=== PATIENT | female | born 1955 | race Caucasian/White ===

== ENCOUNTER 2016-07-27 17:18 | Emergency (ER) | payer OTHER ==
[2016-07-27 17:26] VITALS: BP 145/72; PULSE 67; TEMP 97.5; BMI 23.8
[2016-07-27 18:18] LABS: BASOPHIL 0.7 % (0-2.0); EOSINOPHIL 1.9 % (0-4.5); MCH 30.4 pg (25.7-33.7); MCHC 33.2 g/dl (32.0-36.0); MEAN CELL VOLUME 91.3 fl (80-96); MEAN PLT VOLUME 8.2 fl (7.5-11.1); NEUTROPHILS 80.6 % (42.8-82.8); PLATELET COUNT 303 K/MM3 (134-434); RDW 13.4 % (11.6-15.6); WHITE BLOOD COUNT 10.9 K/mm3 (4.0-10.0)
--- NOTE | 2016-07-27 18:20 | PDOC ---
History of Present Illness - General Chief Complaint: Pain Stated Complaint: PCP SENT/ABDOMINAL PAIN Time Seen by Provider: 07/27/16 17:38 History Source: Patient Exam Limitations: No Limitations - History of Present Illness Travel History: No Initial Comments: 07/27/16 18:14 60-year-old female sent over here from [place] Dr. Posadas for evaluation of abdominal pain and abdominal distention. Patient was receiving a colonoscopy today by Dr. Posadas when he was unable to advance his scope secondary to "bowel twisting", and "gas." Patient was going for colonoscopy since she has been having episodes of constipation with no bowel movement sometimes up to 8 days. Patient also has had increase abdominal distention despite passing gas. Patient denies nausea, vomiting, fever, dysuria , rectal bleeding, or hemorrhoids. Patient does state was diagnosed with bladder cancer last year and under the care of Dr. Dr. Polanco but is currently on no medical regimen and only being observed this time since she completed the initial treatment last year. Timing/Duration: reports: constant, getting worse Quality: reports: moderate, fullness, sharpness Abdominal Pain Onset Location: reports: generalized abdomen Pain Radiation: reports: RLQ, LLQ Activities at Onset: reports: none Aggravating Factors: improves with: None Alleviating Factors: improves with: None Past History - Past Medical History Allergies/Adverse Reactions: Allergies Allergy/AdvReac Type Severity Reaction Status Date / Time metformin Allergy Hives Verified 07/27/16 17:20 Penicillins Allergy Verified 07/27/16 17:20 Home Medications: Ambulatory Orders Albuterol Sulfate Inhaler - [Ventolin HFA Inhaler -] 1 - 2 inh PO Q4H PRN #0 inh 01/12/14 Montelukast Na [Singulair -] 10 mg PO HS PRN #0 tablet 01/12/14 Prednisone [Deltasone -] 40 mg PO DAILY #0 tablet 01/12/14 Asthma: Yes Cancer: Yes (bladder) Suicide Attempt (Hx): No - Reproductive History Is Patient Now?: No Therapeutic (s) & number: No - Immunization History Immunization Up to Date: Yes - Psycho/Social/Smoking Cessation Hx Anxiety: No Suicidal Ideation: No Smoking Status: No Smoking History: Former smoker Have you smoked in the past 12 months: No Number of Cigarettes Smoked Daily: 0 If you are a former smoker, when did you quit?: stopped 1990 Information on smoking cessation initiated: No Hx Alcohol Use: No Drug/Substance Use Hx: No Substance Use Type: None Hx Substance Use Treatment: No Patient Lives Alone: No Lives with/in: spouse/SO Review of Systems - Review of Systems Able to Perform ROS?: Yes Constitutional: No: Symptoms Reported HEENTM: No: Symptoms Reported Respiratory: No: Symptoms reported Cardiac (ROS): No: Symptoms Reported ABD/GI: Yes: Abdominal Distended, Constipated, Abdominal cramping : No: Symptoms Reported Musculoskeletal: No: Symptoms Reported Integumentary: No: Symptoms Reported Neurological: No: Symptoms reported Endocrine: No: Symptoms Reported Hematologic/Lymphatic: No: Symptoms Reported *Physical Exam - Vital Signs Last Vital Signs Temp Pulse Resp BP Pulse Ox 97.5 F L 67 24 145/72 100 07/27/16 17:21 07/27/16 17:21 07/27/16 17:21 07/27/16 17:21 07/27/16 17:21 - Physical Exam General Appearance: Yes: Nourished, Appropriately Dressed. No: Apparent Distress HEENT: negative: Pale Conjunctivae Neck: positive: Supple Respiratory/Chest: positive: Lungs Clear, Normal Breath Sounds. negative: Respiratory Distress, Accessory Muscle Use Cardiovascular: positive: Regular Rhythm, Regular Rate. negative: Murmur Gastrointestinal/Abdominal: positive: Tender (lower quadrants ), Increased Bowel Sounds, Distended. negative: Guarding, Rebound, Hernia, Mass Musculoskeletal: negative: CVA Tenderness Extremity: positive: Normal Capillary Refill. negative: Pedal Edema Integumentary: positive: Normal Color, Warm, Moist Neurologic: positive: Normal Mood/Affect, Motor Strength 5/5 (ambulatory) ED Treatment Course - LABORATORY CBC & Chemistry Diagram: 07/27/16 18:00 07/27/16 18:00 - RADIOLOGY Radiology Studies Ordered: Category Date Time Status ABDOMEN & PELVIS CT W/O CONTR [CT] Stat CT Scan 07/27/16 18:06 Ordered ABDOMEN FLAT & UPRIGHT [RAD] Stat Radiology 07/27/16 18:05 Ordered Medical Decision Making - Medical Decision Making 07/27/16 18:18 Patient sent here for evaluation of abdominal distention, and gas. Patient states was unable to receive the colonoscopy today by Dr. Posadas and was sent here for further evaluation. Patient states was due for colonoscopy today since she has been having bouts of constipation and abdominal distention. Patient concerning for perforation versus partial bowel obstruction. Patient ordered initially for flat and upright x-ray including labs and then will have a CT with by mouth contrast. 07/27/16 18:51 X-ray shows no perforation. Patient pending CT. Case discussed with Dr. Steward who states will consult on patient in the morning. 07/27/16 19:20 Dr. Posadas here for consultation and states patient may be discharged home and follow up in the office. Patient also to take Gas-X upon discharge. Will repeat vitals. *DC/Admit/Observation/Transfer Diagnosis at time of Disposition: Gas - Discharge Dispostion Disposition: HOME Condition at time of disposition: Good - Referrals Referrals: Junaid Cabrera MD [Primary Care Provider] - Jimy Posadas MD [Staff Physician] - - Patient Instructions Printed Discharge Instructions: How to Avoid Gas, Avoiding Gas-producing Foods Additional Instructions: Please increase your ambulation. May take Gas-X to alleviate your symptoms. Follow up with Dr. Posadas next week.
[2016-07-27 18:40] LABS: URINE APPEARANCE CLEAR; URINE BILIRUBIN NEGATIVE (NEGATIVE); URINE COLOR YELLOW; URINE GLUCOSE (UA) NEGATIVE (NEGATIVE); URINE KETONE NEGATIVE (NEGATIVE); URINE LEUK ESTERASE NEGATIVE (NEGATIVE); URINE NITRITE NEGATIVE (NEGATIVE); URINE PROTEIN NEGATIVE (NEGATIVE); URINE UROBILINOGEN NEGATIVE E.U./dl (0.2-1.0)
[2016-07-27 18:44] LABS: URINE BLOOD 1+ (NEGATIVE)
[2016-07-27 19:00] LABS: INR 1.12 (0.82-1.09); PROTHROMBIN TIME (PATIENT) 12.4 SEC (9.98-11.88)
[2016-07-27 19:25] LABS: ALBUMIN 4.1 g/dl (3.4-5.0); ALK PHOS 91 U/L (45-117); ANION GAP 10 (8-16); BILIRUBIN,TOTAL 0.6 mg/dL (0.2-1.0); CALCIUM 9.2 mg/dL (8.5-10.1); CO2 23 mmol/L (21-32); CREATININE 0.7 mg/dL (0.55-1.02); GLUCOSE,RANDOM 98 mg/dL (74-106); SGPT/ALT 25 U/L (12-78); TOT PROT 7.1 g/dl (6.4-8.2)
[2016-07-27 19:33] LABS: SGOT/AST 22 U/L (15-37)
--- NOTE | 2016-07-28 10:30 | EKG ---
Test Reason : Blood Pressure : / mmHG Vent. Rate : 056 BPM Atrial Rate : 056 BPM P-R Int : 128 ms QRS Dur : 084 ms QT Int : 430 ms P-R-T Axes : 044 024 044 degrees QTc Int : 414 ms SINUS BRADYCARDIA POSSIBLE LEFT ATRIAL ENLARGEMENT BORDERLINE ECG WHEN COMPARED WITH ECG OF 09-JAN-2014 13:27, VENT. RATE HAS DECREASED BY 30 BPM QT HAS SHORTENED Confirmed by EMBER NGO, JORDON ([id number]) on 07/28/2016 10:30:41 AM Referred By: Confirmed By:JORDON PA MD
== END 2016-07-27 20:10 | disposition home or self-care (01) ==
LOC: JER 17:18 → SUPCPDRO 17:18 → JER 20:10
DX: R14.3 Flatulence (principal); Z85.51 Personal history of malignant neoplasm of bladder; J45.909 Unspecified asthma, uncomplicated; Z87.891 Personal history of nicotine dependence
CPT/HCPCS: 36415; 74020-TC; 80053; 81003; 81015; 85025; 85610; 93005; 93010; 99284-25

== ENCOUNTER 2017-07-18 05:19 | Day surgery (SDC) | payer OTHER ==
[2017-07-12 14:26] VITALS: BMI 24.1
[2017-07-18] MEDS ORDERED: LIDOCAINE HCL/PF 2% SDV 5ML VIAL ONE (13:37)
[2017-07-18] MEDS ORDERED: MIDAZOLAM HCL 2 MG/2 ML SINGLE DOSE VIAL ONE (13:38)
[2017-07-18] MEDS ORDERED: PROPOFOL 20 ML ONE ×2 (13:38)
[2017-07-18] MEDS ORDERED: LEVOFLOXACIN 500 MG PREMIX BAG IVPB ONE (13:55)
[2017-07-18] MEDS ORDERED: ONDANSETRON 4 MG/2 ML VIAL IVPUSH PRN (14:42)
[2017-07-18] MEDS ORDERED: oxyCODONE HCL 5 MG TABLET PO PRN (14:42)
[2017-07-18] MEDS ORDERED: PROMETHAZINE HCL 25 MG/1 ML VIAL IVPUSH PRN (14:42)
[2017-07-18] MEDS ORDERED: LACTATED RINGERS SOLUTION 1,000 ML IV SCH (14:45)
[2017-07-18] MEDS ORDERED: ONDANSETRON 4 MG/2 ML VIAL ONE (16:19)
[2017-07-18 16:43] VITALS: TEMP 97.5
--- NOTE | 2017-07-18 17:09 | OP ---
Operative Note - Note: Operative Date: 07/18/17 Pre-Operative Diagnosis: recurrent bladder tumor Operation: cystoscopy and bladder biopsy Findings: posterior wall 1 cm lesion with papillary characteristics Post-Operative Diagnosis: Same as Pre-op Surgeon: August Polanco Anesthesia: General Specimens Removed: bladder tumor Operative Report Dictated: Yes
[2017-07-18 18:51] VITALS: BP 125/83; PULSE 62
--- NOTE | 2017-07-19 09:06 | OP ---
DATE OF OPERATION: 07/18/2017 PREOPERATIVE DIAGNOSIS: Recurrent bladder tumor in a patient with a history of transitional cell carcinoma. POSTOPERATIVE DIAGNOSIS: Recurrent bladder tumor in a patient with a history of transitional cell carcinoma. PROCEDURE: Cystoscopy and bladder biopsy. ATTENDING: August Hays MD ANESTHESIA: General. DESCRIPTION OF OPERATION: The patient was brought in the operating room and placed in supine position. General anesthesia and preoperative antibiotics were administered. The patient was then in the dorsal lithotomy position and prepped and draped in the usual sterile manner. Cystoscopy was performed, and a 1-cm lesion at the posterior bladder near the dome was noted. Because of the position, resection of the bladder tumor was not advisable. In order to avoid an open procedure involving a partial cystectomy, it was decided to use a biopsy forceps to remove the tumor and send it for analysis. The tumor was removed. No remnants of the tumor were left behind. Excellent hemostasis was obtained with Bugbee cauterization. The patient tolerated the procedure very well. The patient was left with a catheter. The disposition of the patient was to the recovery room. Gomez [id number]
--- NOTE | 2017-07-20 12:48 | PATH ---
Surgical Pathology Report Patient Name: BARON MARK [facility]. Rec. #: [id number] /Age/Gender: 1955 (Age: 61) / F Account: [id number] Location: [facility] SURGICAL Taken: 07/18/2017 Received: 07/19/2017 Reported: 07/20/2017 Physicians: August Polanco Specimen(s) Received RECURRENT BLADDER TUMOR Clinical History Carcinoma In situ of bladder Final Diagnosis BLADDER, RECURRENT TUMOR, BIOPSY: LOW GRADE PAPILLARY UROTHELIAL CARCINOMA, NON-INVASIVE. NO flat carcinoma in situ (CIS) identified. NO MUSCULARIS PROPRIA PRESENT. Comment: Findings discussed with Dr. Polanco. Electronically Signed Faiza Owens M.D. Gross Description Received in formalin, labeled "recurrent bladder tumor" is a lentz, irregular portion of soft tissue measuring 0.2 cm. in greatest dimension. The specimen is submitted in toto in one cassette. 07/19/201707/19/2017
== END 2017-07-18 18:20 | disposition home or self-care (01) ==
LOC: JASU-SURG 05:19
PROVIDERS: ATTEND Urology
PROC: 0TBB8ZX Excision of Bladder, Via Natural or Artificial Opening Endoscopic, Diagnostic (ICD-10-PCS; principal; 2017-07-18 11:30)
DX: C67.9 Malignant neoplasm of bladder, unspecified (principal)
CPT/HCPCS: 88305-TC; 94760

== ENCOUNTER 2018-03-06 07:17 | Day surgery (SDC) | payer OTHER ==
[2018-03-03 11:39] VITALS: BMI 24.1
[2018-03-06] MEDS ORDERED: MIDAZOLAM HCL 2 MG/2 ML SINGLE DOSE VIAL ONE (08:16)
[2018-03-06] MEDS ORDERED: LIDOCAINE HCL/PF 2% SDV 5ML VIAL ONE (08:16)
[2018-03-06] MEDS ORDERED: PROPOFOL 20 ML ONE (08:16)
[2018-03-06] MEDS ORDERED: ONDANSETRON 4 MG/2 ML VIAL IVPUSH PRN (09:11)
[2018-03-06] MEDS ORDERED: oxyCODONE HCL 5 MG TABLET PO PRN (09:11)
[2018-03-06] MEDS ORDERED: LACTATED RINGERS SOLUTION 1,000 ML IV SCH (09:15)
[2018-03-06 09:37] VITALS: TEMP 97.7
[2018-03-06 10:01] VITALS: PULSE 52
[2018-03-06] MEDS ORDERED: oxyCODONE HCL 5 MG TABLET ONE (10:22)
--- NOTE | 2018-03-06 10:24 | OP ---
Operative Note - Note: Operative Date: 03/06/18 Pre-Operative Diagnosis: bladder tumor with history of TCC Operation: Cystoscopy/bladder biopsy/transuretral vaporizaion of bladder tumor Findings: two areas of bladder tumor each measuring one cm. Three areas vaporized with total area of 3-4 cm. Post-Operative Diagnosis: Same as Pre-op Surgeon: August Polanco Anesthesia: General Specimens Removed: bladder tumor Drains & Tubes with Location: [address]
[2018-03-06] MEDS ORDERED: oxyCODONE HCL 5 MG TABLET PO ONE (10:30)
[2018-03-06 11:19] VITALS: BP 112/69
--- NOTE | 2018-03-07 08:20 | OP ---
DATE OF OPERATION: 03/06/2018 PREOPERATIVE DIAGNOSIS: Bladder tumor with history of transitional cell carcinoma. POSTOPERATIVE DIAGNOSIS: Bladder tumor with history of transitional cell carcinoma. PROCEDURE PERFORMED: Cystoscopy, bladder biopsy, transurethral vaporization of bladder tumor. SURGEON: Erik Mendez MD ANESTHESIA: General. DESCRIPTION OF PROCEDURE: With the patient under anesthesia, cystoscopy was performed. The patient had an attempt at a biopsy in the office setting. This was performed at the dome of the bladder. There were 2 other areas with a small focus of neoplastic growth. Each of these areas measured a size of greater than 1 cm. A total of 3 to 4 cm was involved with the neoplasm of the bladder. The 2 residual neoplastic growths were biopsied and sent for analysis. Vaporization of the affected areas was performed utilizing the PlasmaKinetic system or bipolar system. The elements were utilized and vaporization to the level of the deep muscle of the bladder was performed in all 3 areas. No complications were noted. The patient tolerated the procedure very well. The patient was left with a Mehta catheter to straight drainage. ERIK MENDEZ M.D. [id number]
--- NOTE | 2018-03-07 18:13 | PATH ---
Surgical Pathology Report Patient Name: BARON MARK [facility]. Rec. #: [id number] /Age/Gender: 1955 (Age: 62) / F Account: [id number] Location: [facility] SURGICAL Taken: 03/06/2018 Received: 03/06/2018 Reported: 03/07/2018 Physicians: August Polanco Specimen(s) Received URINARY/BLADDER BIOPSY Clinical History Carcinoma in situ of bladder Final Diagnosis URINARY BLADDER, BIOPSY: LOW GRADE PAPILLARY UROTHELIAL CARCINOMA, NONINVASIVE. NO MUSCULARIS PROPRIA PRESENT. NO FLAT CARCINOMA IN SITU IDENTIFIED. Electronically Signed Olvin Ponce M.D. Gross Description Received in formalin labeled "urinary bladder biopsy," are 2 lentz soft tissue fragments averaging 0.2 cm in greatest dimension. The specimens are submitted in toto in one cassette. 03/06/201803/06/2018
== END 2018-03-06 11:28 | disposition home or self-care (01) ==
LOC: JASU-SURG 07:17
PROVIDERS: ATTEND Urology
PROC: 0TBB8ZX Excision of Bladder, Via Natural or Artificial Opening Endoscopic, Diagnostic (ICD-10-PCS; 2018-03-06)
PROC: 0T5B8ZZ Destruction of Bladder, Via Natural or Artificial Opening Endoscopic (ICD-10-PCS; principal; 2018-03-06 09:00)
DX: C67.9 Malignant neoplasm of bladder, unspecified (principal)
CPT/HCPCS: 88305-TC; 94760

== ENCOUNTER 2020-02-04 12:24 | Day surgery (SDC) | payer OTHER ==
[2020-02-01 12:47] VITALS: BMI 24.1
[2020-02-04] MEDS ORDERED: MIDAZOLAM HCL 2 MG/2 ML SINGLE DOSE VIAL ONE (14:50)
[2020-02-04] MEDS ORDERED: PROPOFOL 20 ML ONE (15:10)
--- NOTE | 2020-02-04 15:45 | OP ---
Operative Note - Note: Operative Date: 02/04/20 Pre-Operative Diagnosis: Left renal stone Operation: Left ESWL Findings: 5 mm lower pole left renal stone Post-Operative Diagnosis: Same as Pre-op Surgeon: August Polanco Anesthesia: Regional Estimated Blood Loss (mls): 0 Operative Report Dictated: Yes
[2020-02-04 17:44] VITALS: BP 118/70; PULSE 70; TEMP 97.8
--- NOTE | 2020-02-18 20:50 | OP ---
DATE OF OPERATION: 02/04/2020 PREOPERATIVE DIAGNOSIS: Left renal stone. POSTOPERATIVE DIAGNOSIS: Left renal stone. PROCEDURE: Left extracorporeal shock wave lithotripsy. ATTENDING: Erik Mendez MD ANESTHESIA: Fractional. DESCRIPTION OF OPERATION: Patient was brought in the operating room and placed in supine position on the operating room table. Ultrasonography and fluoroscopy were performed. A 5-mm left lower pole stone was identified. Shock wave lithotripsy was then started after anesthesia and preoperative antibiotics had been administered. The patient tolerated the procedure very well. There were no complications noted. The disposition of the patient was to the recovery room. ERIK MENDEZ M.D. [id number]
== END 2020-02-04 17:00 | disposition home or self-care (01) ==
LOC: JASU-SURG 12:24
PROVIDERS: ATTEND Urology
PROC: 0TF4XZZ Fragmentation in Left Kidney Pelvis, External Approach (ICD-10-PCS; principal; 2020-02-04 14:30)
DX: N20.0 Calculus of kidney (principal)

== ENCOUNTER 2020-03-31 04:45 | Day surgery (SDC) | payer OTHER ==
[2020-03-28 14:02] VITALS: BMI 24.0
--- OUTSIDE RECORDS SUMMARY | 2020-03-31 04:49 | XMS ---
:1955 Author Organization [facility] Support Name Relationship Address Phone ANDERSON INTERMEDIATE Unavailable [address] [place] [address] ALBERTINAPATRICIAHARRIET WAQAS (BR IN LAW) BROTHER [address] [address] MATHEW [address] [place] [address] Re-disclosure Warning The records that you are about to access may contain information from federally- assisted alcohol or drug abuse programs. If such information is present, then the following federally mandated warning applies: This information has been disclosed to you from records protected by federal confidentiality rules (42 CFR part 2). The federal rules prohibit you from making any further disclosure of this information unless further disclosure is expressly permitted by the written consent of the person to whom it pertains or as otherwise permitted by 42 CFR part 2. A general authorization for the release of medical or other information is NOT sufficient for this purpose. The Federal rules restrict any use of the information to criminally investigate or prosecute any alcohol or drug abuse patient.The records that you are about to access may contain highly sensitive health information, the redisclosure of which is protected by Article 27-F of the [facility] Public Health law. If you continue you may haveaccess to information: Regarding HIV / AIDS; Provided by facilities licensed or operated by the [facility] Office of Mental Health; or Provided by the [facility] Office for People With Developmental Disabilities. If such information is present, then the following [facility] mandated warning applies: This information has been disclosed to you from confidential records which are protected by state law. State law prohibits you from making any further disclosure of this information without the specific written consent of the person to whom it pertains, or as otherwise permitted by law. Any unauthorized further disclosure in violation of state law may result in a fine or care home sentence or both. A general authorization for the release of medical or other information is NOT sufficient authorization for further disclosure. Insurance Providers Payer name Policy type Policy ID Covered Covered libertarian's Policy P robyn / Coverage libertarian ID relationship to [place] [employer] type [place] LOCAL [id number] - [id number] [facility] Results ID Date Data Source [id number] 03/26/2020 11:51:00 AM EDT [facility] Name Value Range Interpretation Description Data Sup porting Code Source(s) Document(s ) SARS [facility] coronavirus 2 RNA This lab was ordered by [facility] and reported by [facility]. ID Date Data Source [id number] 03/20/2020 07:42:00 AM EDT [facility] Name Value Range Interpretation Code Description Data Edyta rce(s) Supporting Document(s ) HOLOGIC [facility] SARS-CoV-2 TMA PCR This lab was ordered by [facility] and reported by [facility]. ID Date Data Source [id number] 03/12/2020 09:10:00 AM EDT [facility] Name Value Range Interpretation Code Description Data Edyta rce(s) Supporting Document(s ) HOLOGIC [facility] SARS-CoV-2 TMA PCR This lab was ordered by [facility] and reported by [facility]. ID Date Data Source [id number] 03/10/2020 08:11:00 AM EDT [facility] Name Value Range Interpretation Code Description Data Edyta rce(s) Supporting Document(s ) HOLOGIC [facility] SARS-CoV-2 TMA PCR This lab was ordered by [facility] and reported by [facility]. ID Date Data Source [id number] 02/20/2020 08:02:00 AM EDT [facility] Name Value Range Interpretation Code Description Data Edyta rce(s) Supporting Document(s ) HOLOGIC [facility] SARS-CoV-2 TMA PCR This lab was ordered by [facility] and reported by [facility]. ID Date Data Source [id number] 02/12/2020 11:11:00 AM EDT [facility] Name Value Range Interpretation Code Description Data Edyta rce(s) Supporting Document(s ) HOLOGIC [facility] SARS-CoV-2 TMA PCR This lab was ordered by [facility] and reported by [facility]. ID Date Data Source [id number] 01/30/2020 12:37:00 PM EDT [facility] Name Value Range Interpretation Description Data Sup porting Code Source(s) Document(s ) SARS [facility] coronavirus 2 RNA This lab was ordered by [facility] and reported by [facility]. ID Date Data Source [id number] 01/24/2020 11:33:00 AM EDT [facility] Name Value Range Interpretation Code Description Data Edyta rce(s) Supporting Document(s ) SARS-CoV-2 [facility] , RNA This lab was ordered by [facility] and reported by [facility]. ID Date Data Source [id number] 01/17/2020 09:02:00 AM EDT [facility] Name Value Range Interpretation Code Description Data Edyta rce(s) Supporting Document(s ) SARS-CoV-2 [facility] , RNA This lab was ordered by [facility] and reported by [facility]. ID Date Data Source [id number] 01/10/2020 08:55:00 AM EDT [facility] Name Value Range Interpretation Code Description Data Edyta rce(s) Supporting Document(s ) SARS-CoV-2 [facility] , RNA This lab was ordered by [facility] and reported by [facility]. ID Date Data Source [id number] 01/03/2020 09:09:00 AM EDT [facility] Name Value Range Interpretation Code Description Data Edyta rce(s) Supporting Document(s ) SARS-CoV-2 [facility] , RNA This lab was ordered by [facility] and reported by [facility]. ID Date Data Source [id number] 12/23/2019 07:42:00 AM EDT [facility] Name Value Range Interpretation Code Description Data Edyta rce(s) Supporting Document(s ) SARS-CoV-2 [facility] , RNA This lab was ordered by [facility] and reported by [facility]. ID Date Data Source [id number] 12/17/2019 08:22:00 AM EDT [facility] Name Value Range Interpretation Code Description Data Edyta rce(s) Supporting Document(s ) SARS-CoV-2 [facility] , RNA This lab was ordered by [facility] and reported by [facility]. ID Date Data Source [id number] 12/13/2019 01:35:00 PM EDT [facility] Name Value Range Interpretation Code Description Data Edyta rce(s) Supporting Document(s ) SARS-CoV-2 [facility] , RNA This lab was ordered by [facility] and reported by [facility]. ID Date Data Source [id number] 12/10/2019 07:27:00 AM EDT [facility] Name Value Range Interpretation Code Description Data Edyta rce(s) Supporting Document(s ) SARS-CoV-2 [facility] , RNA This lab was ordered by [facility] and reported by [facility]. ID Date Data Source [id number] 12/06/2019 10:26:00 AM EDT [facility] Name Value Range Interpretation Code Description Data Edyta rce(s) Supporting Document(s ) SARS-CoV-2 [facility] , RNA This lab was ordered by [facility] and reported by [facility]. ID Date Data Source [id number] 12/04/2019 08:13:00 AM EDT [facility] Name Value Range Interpretation Code Description Data Edyta rce(s) Supporting Document(s ) SARS-CoV-2 [facility] , RNA This lab was ordered by [facility] and reported by [facility]. ID Date Data Source [id number] 11/29/2019 10:33:00 AM EDT [facility] Name Value Range Interpretation Code Description Data Edyta rce(s) Supporting Document(s ) SARS-CoV-2 [facility] , RNA This lab was ordered by [facility] and reported by [facility]. Procedure
[2020-03-31] MEDS ORDERED: MIDAZOLAM HCL 2 MG/2 ML SINGLE DOSE VIAL ONE (12:53)
[2020-03-31] MEDS ORDERED: LIDOCAINE HCL/PF 2% SDV 5ML VIAL ONE (13:20)
[2020-03-31] MEDS ORDERED: PROPOFOL 20 ML ONE (13:20)
[2020-03-31 13:46] VITALS: PULSE 61
--- NOTE | 2020-03-31 14:30 | OP ---
Operative Note - Note: Operative Date: 03/31/20 Pre-Operative Diagnosis: Right renal stone Operation: Right ESWL Findings: 6 mm mid pole Right renal stone Post-Operative Diagnosis: Same as Pre-op Surgeon: August Polanco Anesthesia: Regional Estimated Blood Loss (mls): 0 Operative Report Dictated: Yes
[2020-03-31] MEDS ORDERED: ONDANSETRON *ODT* 4 MG TABLET ONE (15:44)
[2020-03-31] MEDS ORDERED: ONDANSETRON 4 MG TABLET PO ONE (15:50)
[2020-03-31 16:09] VITALS: BP 125/82; TEMP 96
[2020-03-31] MEDS ORDERED: ONDANSETRON 4 MG/2 ML VIAL IVPUSH PRN (16:13)
[2020-03-31] MEDS ORDERED: ONDANSETRON *ODT* 4 MG TABLET SL ONE (16:14)
--- NOTE | 2020-04-08 11:47 | OP ---
DATE OF OPERATION: 03/31/2020 PREOPERATIVE DIAGNOSIS: Right renal stone. POSTOPERATIVE DIAGNOSIS: Right renal stone. PROCEDURE: Right extracorporeal shock wave lithotripsy. ATTENDING: August Polanco MD ANESTHESIA: Fractional. OPERATION: The patient was brought into the operating room, placed in the supine position on the operating room table. Ultrasonography and fluoroscopy were performed. A 6-mm right midpole stone was identified. Anesthesia and preoperative antibiotics were then administered. Shock wave lithotripsy was then started. Excellent fragmentation of the stone was noted under real-time ultrasonography and fluoroscopy. No complications were noted. The disposition of the patient was to the recovery room. Gomez [id number]
== END 2020-03-31 16:15 | disposition home or self-care (01) ==
LOC: JASU-SURG 04:45
PROVIDERS: ATTEND Urology
PROC: 0TF3XZZ Fragmentation in Right Kidney Pelvis, External Approach (ICD-10-PCS; principal; 2020-03-31 12:00)
DX: N20.0 Calculus of kidney (principal)
CPT/HCPCS: Q0162